=== PATIENT | female | born 1995 | race Hispanic/Latino ===

== ENCOUNTER 2017-06-30 10:00 | Emergency (ER) | payer OTHER ==
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
[2017-06-30 14:55] VITALS: BP 120/80
== END 2017-06-30 14:53 | disposition home or self-care (01) ==
LOC: ED 10:00
DX: M25.551 Pain in right hip (principal); V49.49XA Driver injured in collision with other motor vehicles in traffic accident, initial encounter; X58.XXXA Exposure to other specified factors, initial encounter; Y93.9 Activity, unspecified; Y92.9 Unspecified place or not applicable; Y99.9 Unspecified external cause status
CPT/HCPCS: 81025; 99283